=== PATIENT | female | born 1990 | race Caucasian/White ===

== ENCOUNTER 2016-05-04 15:04 | Emergency (ER) | payer SELFPAY ==
--- NOTE | 2016-05-04 16:17 | ED NURSING NOTES ---
Clinical Report - Nurses [facility] [address] [place] [address] 05/04/2016 15:06 [id number] Triage time 15:31. Acuity: LEVEL 4. Chief Complaint: TOOTHACHE. Alert. No acute distress. GAYLA COMA SCORE: [place] Coma Scale: 15- eyes open spontaneously (4); best verbal response- oriented x 4 (5); best motor response- obeys commands (6). --15:36 Perla Oseguera R.N. 15:31 05/04/16. BP: 116/72. HR: 85. RR: 18. O2 saturation: 100% on room air. Temp: 98 F (oral). Pain level now: 610. --15:36 Perla Oseguera R.N. Weight: 58.9 kg stated. Height/Length: 65 inches Per Patient. BMI: 21.6. --15:35 Peral Oseguera R.N. Medications Depakote Oral. Mobic Oral. --15:33 Perla Oseguera R.N. Allergies No Known Drug Allergy. --15:33 Perla Oseguera R.N. History Arrived by private vehicle. Historian: patient. Accompanied by friend. Primary physician (out of state). Onset. (about 4 days). PAST MEDICAL HX: Last normal menstrual period- Mar 2016. SOCIAL HX: Light tobacco smoker- less than 1/2 a pack per day. Occasional alcohol use. History of drug use: marijuana. FALL RISK ASSESSMENT: Fall risk assessment completed. No fall risk identified. FUNCTIONAL ASSESSMENT: Functional assessment: no impairments noted. LEARNING NEEDS ASSESSMENT: The learning needs assessment revealed no barriers. --15:36 Perla Oseguera R.N. PROBLEMS: Scoliosis. Bipolar Disorder. Asthma. --15:34 Perla Oseguera R.N. ADDITIONAL SURGERIES: no known surgeries. Assessment GENERAL / NEURO / PSYCH: Alert. Oriented X 4. Appears in no acute distress. Patient appears calm and cooperative. RESPIRATORY: Respirations not labored. SKIN: Skin is warm and dry. --15:36 Perla Oseguera R.N. Interventions ID band on patient. To treatment room. --15:36 Perla Oseguera R.N. PHYSICAL ASSESSMENT 16:10 05/04/16. Ambulatory to room. GENERAL / NEURO / PSYCH: Alert. Oriented X 4. Appears in no acute distress. RESPIRATORY: Respirations not labored. SKIN: Skin is warm and dry. --16:10 Perla Oseguera R.N. NURSING PROGRESS NOTES 16:11 05/04/16. Patient placed in chair. --16:11 Perla Oseguera R.N. 16:20. The patient is calm. Overall patient status is the same- she states feels the same. GENERAL / NEURO / PSYCH: Alert. Oriented X 4. RESPIRATORY: No respiratory distress. SKIN: Skin is warm and dry. --16:41 Perla Oseguera R.N. DISPOSITION / DISCHARGE Departure time: 1620. Condition at departure: unchanged. No learning barriers present. Discharge instructions provided and reviewed with the patient. Reviewed medication(s). Prescription(s) given to the patient. Patient verbalized understanding. Written instructions provided in Yoruba. The patient was discharged home and accompanied by family. She left the Emergency Department ambulatory and via private vehicle. FALL RISK ASSESSMENT: Fall risk assessment completed. No fall risk identified. --16:40 Perla Oseguera R.N. Reviewed referrals (Dental Referral Sheet). --16:41 Perla Oseguera R.N. Locked/Released at 05/04/2016 16:42 by Perla Oseguera R.N.
--- NOTE | 2016-05-04 16:17 | ED CLINICAL REPORT ---
Clinical Report - Physicians/Mid Levels [facility] [address] [place] [address] 05/04/2016 15:06 Patient: SEVERIANO RUDOLPH Time Seen: 16:14 May 04 2016. Arrived- By private vehicle. Historian- patient. HISTORY OF PRESENT ILLNESS Chief Complaint: DENTAL PAIN. 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 Pain described as mild. The patient has had toothache. (Reports history of broken ounce of the left lower molar sign, now with pain to the area. Patient reports no fevers or chills. Reports paresthesias to the tooth, pain radiating to the ear.). REVIEW OF SYSTEMS No fever, cough, difficulty breathing, nausea or abdominal pain. No headache or fainting episodes. All systems otherwise negative, except as recorded above. ADDITIONAL NOTES The nursing notes have been reviewed. PHYSICAL EXAM Vital Signs: 05/04/2016 15:31 BP: 116/72. HR: 85. RR: 18. O2 saturation: 100%. Temp: 98 F. Pain level now: 6/10. Appearance: Alert. Eyes: Conjunctivae and eyelids normal. ENT: Mild, localized dental decay (lower left second premolar). Dental tenderness (left lower gum line). Ears normal. Nose normal. Lips normal. Uvula midline. No mouth ulcerations, tonsillar exudate or peritonsillar mass. Neck: Trachea midline. No adenopathy. No thyromegaly or meningeal signs. CVS: Normal heart rate and rhythm. Heart sounds normal. Respiratory: No respiratory distress. Breath sounds normal. Skin: Normal skin color. No rash. PROGRESS AND PROCEDURES Course of Care: No signs of Abner's angina. No signs of palpable abscess for drainage. No external facial swelling. 05/04/2016 15:31 BP: 116/72. HR: 85. RR: 18. O2 saturation: 100%. Temp: 98 F. Pain level now: 6/10. Patient is stable. The patient's symptoms are unchanged. Patient/family counseled. Disposition: Discharged. CLINICAL IMPRESSION Moderate dental pain. INSTRUCTIONS Drink plenty of fluids. Prescription Medications: Tylenol with Codeine Tylenol #3 (30 mg / 300 mg) : take 1-2 tablets orally every 6 hours as needed for pain. Dispense fifteen (15). No refill. Amoxicillin 500 mg tablets: take 1 orally every 8 hours for 10 days. No refills. OTC Medications: Motrin IB 200 mg (available over the counter): take 4 orally for 5 days, as needed for pain (Electronically signed by Leesa Barrientos P.A.-C 05/04/2016 16:28)
--- NOTE | 2016-05-04 16:17 | ED CLINICAL REPORT ---
Clinical Report - Physicians/Mid Levels [facility] [address] [place] [address] 05/04/2016 15:06 Patient: SEVERIANO RUDOLPH Time Seen: 16:14 May 04 2016. Arrived- By private vehicle. Historian- patient. HISTORY OF PRESENT ILLNESS Chief Complaint: DENTAL PAIN. 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 Pain described as mild. The patient has had toothache. (Reports history of broken ounce of the left lower molar sign, now with pain to the area. Patient reports no fevers or chills. Reports paresthesias to the tooth, pain radiating to the ear.). REVIEW OF SYSTEMS No fever, cough, difficulty breathing, nausea or abdominal pain. No headache or fainting episodes. All systems otherwise negative, except as recorded above. ADDITIONAL NOTES The nursing notes have been reviewed. PHYSICAL EXAM Vital Signs: 05/04/2016 15:31 BP: 116/72. HR: 85. RR: 18. O2 saturation: 100%. Temp: 98 F. Pain level now: 6/10. Appearance: Alert. Eyes: Conjunctivae and eyelids normal. ENT: Mild, localized dental decay (lower left second premolar). Dental tenderness (left lower gum line). Ears normal. Nose normal. Lips normal. Uvula midline. No mouth ulcerations, tonsillar exudate or peritonsillar mass. Neck: Trachea midline. No adenopathy. No thyromegaly or meningeal signs. CVS: Normal heart rate and rhythm. Heart sounds normal. Respiratory: No respiratory distress. Breath sounds normal. Skin: Normal skin color. No rash. PROGRESS AND PROCEDURES Course of Care: No signs of Abner's angina. No signs of palpable abscess for drainage. No external facial swelling. 05/04/2016 15:31 BP: 116/72. HR: 85. RR: 18. O2 saturation: 100%. Temp: 98 F. Pain level now: 6/10. Patient is stable. The patient's symptoms are unchanged. Patient/family counseled. Disposition: Discharged. CLINICAL IMPRESSION Moderate dental pain. INSTRUCTIONS Drink plenty of fluids. Prescription Medications: Tylenol with Codeine Tylenol #3 (30 mg / 300 mg) : take 1-2 tablets orally every 6 hours as needed for pain. Dispense fifteen (15). No refill. Amoxicillin 500 mg tablets: take 1 orally every 8 hours for 10 days. No refills. OTC Medications: Motrin IB 200 mg (available over the counter): take 4 orally for 5 days, as needed for pain (Electronically signed by Leesa Barrientos P.A.-C 05/04/2016 16:28)
--- NOTE | 2016-05-04 16:42 | ED MED RECONCILIATION SUMMARY ---
Patient: SEVERIANO RUDOLPH Medication Reconciliation Report [facility] VisitID: [id number] [address] [place] [address] 25y, F Registration Date/Time: 05/04/2016 Weight: 58.9 kg Height/Length: 65 in. BMI: 21.6 ALLERGIES: No Known Drug Allergy The patient's Home Medications are listed below: THE FOLLOWING MEDICATIONS NEED TO BE RECONCILED: Depakote Oral Mobic Oral The source(s) of the original Home Medication information: Not obtained. The following Medications were given to the patient in the Emergency Department: None. The following Medications were prescribed to the patient: Motrin IB 200 mg (available over the counter): take 4 orally for 5 days, as needed for pain -- Leesa Barrientos P.A.-C Tylenol with Codeine Tylenol #3 (30 mg / 300 mg) : take 1-2 tablets orally every 6 hours as needed for pain. Dispense fifteen (15). No refill. -- Leesa Barrientos P.A.-C Amoxicillin 500 mg tablets: take 1 orally every 8 hours for 10 days. No refills. -- Leesa Barrientos P.A.-C
--- NOTE | 2016-05-04 16:42 | ED DISCHARGE INSTRUCTIONS ---
Patient: SEVERIANO RUDOLPH General Instructions [facility] VisitID: [id number] [place] [address] 25y, F Registration Date/Time: 05/04/2016 Moderate dental pain. INSTRUCTIONS Drink plenty of fluids. Prescription Medications: Tylenol with Codeine Tylenol #3 (30 mg / 300 mg) : take 1-2 tablets orally every 6 hours as needed for pain. Dispense fifteen (15). No refill. Amoxicillin 500 mg tablets: take 1 orally every 8 hours for 10 days. No refills. OTC Medications: Motrin IB 200 mg (available over the counter): take 4 orally for 5 days, as needed for pain ADDITIONAL INFORMATION Dental Pain A crack or cavity in the tooth, which exposes the sensitive inner area of the tooth can cause tooth pain. An infection in the gum or the root of the tooth can cause pain and swelling. The pain is often made worse by drinking hot or cold fluids, or biting on hard foods. Pain may spread from the tooth to the ear or jaw on the same side. Home Care: Avoid hot and cold foods and liquids since your tooth may be sensitive to temperature changes. If your tooth is chipped or cracked, or if there is a large open cavity, apply OIL OF CLOVES (available zbjg-pyf-mzawnjt in drug stores) directly to the tooth to reduce pain. Some pharmacies carry an bfdn-[id number]-zzuaznf "toothache kit." This contains a paste, which can be applied over the exposed tooth to decrease sensitivity. A cold pack on your jaw over the sore area may help reduce pain. You may use acetaminophen (Tylenol) or ibuprofen (Motrin, Advil) to control pain, unless another medicine was prescribed. [ NOTE: If you have chronic liver or kidney disease or ever had a stomach ulcer or GI bleeding, talk with your doctor before using these medicines.] If you have signs of an infection, an antibiotic will be given. Take it as directed. Follow-Up as directed with a dentist. Your pain may go away with the treatment given. However, only a dentist can fully evaluate and treat the cause and prevent the pain from coming back again. TOOTHACHE IS A SIGN OF DISEASE IN YOUR TOOTH AND SHOULD BE EXAMINED AND TREATED BY A DENTIST. Get Prompt Medical Attention if any of the following occur: Your face becomes swollen or red Pain worsens or spreads to the neck Fever over 100.4 F (38.0 C) Unusual drowsiness; headache or stiff neck; weakness or fainting Pus drains from the tooth Difficulty swallowing or breathing Amoxicillin Trihydrate Oral tablet What is this medicine? AMOXICILLIN (a mox i ROSALIND in) is a penicillin antibiotic. It is used to treat certain kinds of bacterial infections. It will not work for colds, flu, or other viral infections. How should I use this medicine? Take this medicine by mouth with a glass of water. Follow the directions on your prescription label. You may take this medicine with food or on an empty stomach. Take your medicine at regular intervals. Do not take your medicine more often than directed. Take all of your medicine as directed even if you think your are better. Do not skip doses or stop your medicine early. Talk to your planer off bearer regarding the use of this medicine in children. While this drug may be prescribed for selected conditions, precautions do apply. What side effects may I notice from receiving this medicine? Side effects that you should report to your doctor or health account executive healthcare as soon as possible: allergic reactions like skin rash, itching or hives, swelling of the face, lips, or tongue breathing problems dark urine redness, blistering, peeling or loosening of the skin, including inside the mouth seizures severe or watery diarrhea trouble passing urine or change in the amount of urine unusual bleeding or bruising unusually weak or tired yellowing of the eyes or skin Side effects that usually do not require medical attention (report to your doctor or health account executive healthcare if they continue or are bothersome): dizziness headache stomach upset trouble sleeping What may interact with this medicine? amiloride control pills chloramphenicol macrolides probenecid sulfonamides tetracyclines What if I miss a dose? If you miss a dose, take it as soon as you can. If it is almost time for your next dose, take only that dose. Do not take double or extra doses. Where should I keep my medicine? Keep out of the reach of children. Store between 68 and 77 degrees F (20 and 25 degrees C). Keep bottle closed tightly. Throw away any unused medicine after the expiration date. What should I tell my health care provider before I take this medicine? They need to know if you have any of these conditions: asthma kidney disease an unusual or allergic reaction to amoxicillin, other penicillins, cephalosporin antibiotics, other medicines, foods, dyes, or preservatives or trying to get breast-feeding What should I watch for while using this medicine? Tell your doctor or health account executive healthcare if your symptoms do not improve in 2 or 3 days. Take all of the doses of your medicine as directed. Do not skip doses or stop your medicine early. If you are diabetic, you may get a false positive result for sugar in your urine with certain brands of urine tests. Check with your doctor. Do not treat diarrhea with vzkz-sai-cgfawmn products. Contact your doctor if you have diarrhea that lasts more than 2 days or if the diarrhea is severe and watery. Ibuprofen Oral tablet What is this medicine? IBUPROFEN (eye BYOO proe fen) is a non-steroidal anti-inflammatory drug (NSAID). It is used for dental pain, fever, headaches or migraines, osteoarthritis, rheumatoid arthritis, or painful monthly periods. It can also relieve minor aches and pains caused by a cold, flu, or sore throat. How should I use this medicine? Take this medicine by mouth with a glass of water. Follow the directions on the prescription label. Take this medicine with food if your stomach gets upset. Try to not lie down for at least 10 minutes after you take the medicine. Take your medicine at regular intervals. Do not take your medicine more often than directed. A special MedGuide will be given to you by the pharmacist with each prescription and refill. Be sure to read this information carefully each time. Talk to your planer off bearer regarding the use of this medicine in children. Special care may be needed. What side effects may I notice from receiving this medicine? Side effects that you should report to your doctor or health account executive healthcare as soon as possible: allergic reactions like skin rash, itching or hives, swelling of the face, lips, or tongue black or bloody stools, blood in the urine or in vomit breathing problems changes in vision chest pain general ill feeling or flu-like symptoms nausea or vomiting redness, blistering, peeling or loosening of the skin, including inside the mouth slurred speech or weakness on one side of the body stomach pain unexplained weight gain or swelling unusually weak or tired yellowing of eyes or skin Side effects that usually do not require medical attention (report to your doctor or health account executive healthcare if they continue or are bothersome): constipation or diarrhea dizziness gas or heartburn stomach upset What may interact with this medicine? Do not take this medicine with any of the following medications: cidofovir ketorolac methotrexate pemetrexed This medicine may also interact with the following medications: alcohol aspirin diuretics lithium other drugs for inflammation like prednisone warfarin What if I miss a dose? If you miss a dose, take it as soon as you can. If it is almost time for your next dose, take only that dose. Do not take double or extra doses. Where should I keep my medicine? Keep out of the reach of children. Store at room temperature between 15 and 30 degrees C (59 and 86 degrees F). Keep container tightly closed. Throw away any unused medicine after the expiration date. What should I tell my health care provider before I take this medicine? They need to know if you have any of these conditions: asthma cigarette smoker drink more than 3 alcohol containing drinks a day heart disease or circulation problems such as heart failure or leg edema (fluid retention) high blood pressure kidney disease liver disease stomach bleeding or ulcers an unusual or allergic reaction to ibuprofen, aspirin, other NSAIDS, other medicines, foods, dyes, or preservatives or trying to get breast-feeding What should I watch for while using this medicine? Tell your doctor or healthcare professional if your symptoms do not start to get better or if they get worse. This medicine does not prevent heart attack or stroke. In fact, this medicine may increase the chance of a heart attack or stroke. The chance may increase with longer use of this medicine and in people who have heart disease. If you take aspirin to prevent heart attack or stroke, talk with your doctor or health account executive healthcare. Do not take other medicines that contain aspirin, ibuprofen, or naproxen with this medicine. Side effects such as stomach upset, nausea, or ulcers may be more likely to occur. Many medicines available without a prescription should not be taken with this medicine. This medicine can cause ulcers and bleeding in the stomach and intestines at any time during treatment. Ulcers and bleeding can happen without warning symptoms and can cause . To reduce your risk, do not smoke cigarettes or drink alcohol while you are taking this medicine. You may get drowsy or dizzy. Do not drive, use machinery, or do anything that needs mental alertness until you know how this medicine affects you. Do not stand or sit up quickly, especially if you are an older patient. This reduces the risk of dizzy or fainting spells. This medicine can cause you to bleed more easily. Try to avoid damage to your teeth and gums when you brush or floss your teeth. You have been given the following additional information: Dental Pain Amoxicillin Trihydrate Oral tablet Ibuprofen Oral tablet (Electronically signed by Leesa Barrientos P.A.-C 05/04/2016 16:28)
--- NOTE | 2016-05-04 16:42 | ED MED RECONCILIATION SUMMARY ---
Patient: SEVERIANO RUDOLPH Medication Reconciliation Report [facility] VisitID: [id number] [address] [place] [address] 25y, F Registration Date/Time: 05/04/2016 Weight: 58.9 kg Height/Length: 65 in. BMI: 21.6 ALLERGIES: No Known Drug Allergy The patient's Home Medications are listed below: THE FOLLOWING MEDICATIONS NEED TO BE RECONCILED: Depakote Oral Mobic Oral The source(s) of the original Home Medication information: Not obtained. The following Medications were given to the patient in the Emergency Department: None. The following Medications were prescribed to the patient: Motrin IB 200 mg (available over the counter): take 4 orally for 5 days, as needed for pain -- Leesa Barrientos P.A.-C Tylenol with Codeine Tylenol #3 (30 mg / 300 mg) : take 1-2 tablets orally every 6 hours as needed for pain. Dispense fifteen (15). No refill. -- Leesa Barrientos P.A.-C Amoxicillin 500 mg tablets: take 1 orally every 8 hours for 10 days. No refills. -- Leesa Barrientos P.A.-C
--- NOTE | 2016-05-04 16:42 | ED MAR SUMMARY ---
..... Medication Administration Record [facility] [address], [place] [id number] Patient: SEVERIANO RUDOLPH Visit ID: [id number] 25y, F Weight: 58.9 kg Height/Length: 65 in BMI: 21.6 ALLERGIES: No Known Drug Allergy
--- NOTE | 2016-05-04 16:42 | ED MAR SUMMARY ---
..... Medication Administration Record [facility] [address] [place], [place] [id number] Patient: SEVERIANO RUDOLPH Visit ID: [id number] 25y, F Weight: 58.9 kg Height/Length: 65 in BMI: 21.6 ALLERGIES: No Known Drug Allergy
--- NOTE | 2016-05-04 16:42 | ED DISCHARGE INSTRUCTIONS ---
Patient: SEVERIANO RUDOLPH General Instructions [facility] VisitID: [id number] [place] [address] 25y, F Registration Date/Time: 05/04/2016 Moderate dental pain. INSTRUCTIONS Drink plenty of fluids. Prescription Medications: Tylenol with Codeine Tylenol #3 (30 mg / 300 mg) : take 1-2 tablets orally every 6 hours as needed for pain. Dispense fifteen (15). No refill. Amoxicillin 500 mg tablets: take 1 orally every 8 hours for 10 days. No refills. OTC Medications: Motrin IB 200 mg (available over the counter): take 4 orally for 5 days, as needed for pain ADDITIONAL INFORMATION Dental Pain A crack or cavity in the tooth, which exposes the sensitive inner area of the tooth can cause tooth pain. An infection in the gum or the root of the tooth can cause pain and swelling. The pain is often made worse by drinking hot or cold fluids, or biting on hard foods. Pain may spread from the tooth to the ear or jaw on the same side. Home Care: Avoid hot and cold foods and liquids since your tooth may be sensitive to temperature changes. If your tooth is chipped or cracked, or if there is a large open cavity, apply OIL OF CLOVES (available [id number]-fcdppnc in drug stores) directly to the tooth to reduce pain. Some pharmacies carry an vtiw-yaa-sqrizvo "toothache kit." This contains a paste, which can be applied over the exposed tooth to decrease sensitivity. A cold pack on your jaw over the sore area may help reduce pain. You may use acetaminophen (Tylenol) or ibuprofen (Motrin, Advil) to control pain, unless another medicine was prescribed. [ NOTE: If you have chronic liver or kidney disease or ever had a stomach ulcer or GI bleeding, talk with your doctor before using these medicines.] If you have signs of an infection, an antibiotic will be given. Take it as directed. Follow-Up as directed with a dentist. Your pain may go away with the treatment given. However, only a dentist can fully evaluate and treat the cause and prevent the pain from coming back again. TOOTHACHE IS A SIGN OF DISEASE IN YOUR TOOTH AND SHOULD BE EXAMINED AND TREATED BY A DENTIST. Get Prompt Medical Attention if any of the following occur: Your face becomes swollen or red Pain worsens or spreads to the neck Fever over 100.4 F (38.0 C) Unusual drowsiness; headache or stiff neck; weakness or fainting Pus drains from the tooth Difficulty swallowing or breathing Amoxicillin Trihydrate Oral tablet What is this medicine? AMOXICILLIN (a mox i ROSALIND in) is a penicillin antibiotic. It is used to treat certain kinds of bacterial infections. It will not work for colds, flu, or other viral infections. How should I use this medicine? Take this medicine by mouth with a glass of water. Follow the directions on your prescription label. You may take this medicine with food or on an empty stomach. Take your medicine at regular intervals. Do not take your medicine more often than directed. Take all of your medicine as directed even if you think your are better. Do not skip doses or stop your medicine early. Talk to your sanitarian aide regarding the use of this medicine in children. While this drug may be prescribed for selected conditions, precautions do apply. What side effects may I notice from receiving this medicine? Side effects that you should report to your doctor or health respiratory care assistant as soon as possible: allergic reactions like skin rash, itching or hives, swelling of the face, lips, or tongue breathing problems dark urine redness, blistering, peeling or loosening of the skin, including inside the mouth seizures severe or watery diarrhea trouble passing urine or change in the amount of urine unusual bleeding or bruising unusually weak or tired yellowing of the eyes or skin Side effects that usually do not require medical attention (report to your doctor or health respiratory care assistant if they continue or are bothersome): dizziness headache stomach upset trouble sleeping What may interact with this medicine? amiloride control pills chloramphenicol macrolides probenecid sulfonamides tetracyclines What if I miss a dose? If you miss a dose, take it as soon as you can. If it is almost time for your next dose, take only that dose. Do not take double or extra doses. Where should I keep my medicine? Keep out of the reach of children. Store between 68 and 77 degrees F (20 and 25 degrees C). Keep bottle closed tightly. Throw away any unused medicine after the expiration date. What should I tell my health care provider before I take this medicine? They need to know if you have any of these conditions: asthma kidney disease an unusual or allergic reaction to amoxicillin, other penicillins, cephalosporin antibiotics, other medicines, foods, dyes, or preservatives or trying to get breast-feeding What should I watch for while using this medicine? Tell your doctor or health respiratory care assistant if your symptoms do not improve in 2 or 3 days. Take all of the doses of your medicine as directed. Do not skip doses or stop your medicine early. If you are diabetic, you may get a false positive result for sugar in your urine with certain brands of urine tests. Check with your doctor. Do not treat diarrhea with qdlc-wur-adkytaq products. Contact your doctor if you have diarrhea that lasts more than 2 days or if the diarrhea is severe and watery. Ibuprofen Oral tablet What is this medicine? IBUPROFEN (eye BYOO proe fen) is a non-steroidal anti-inflammatory drug (NSAID). It is used for dental pain, fever, headaches or migraines, osteoarthritis, rheumatoid arthritis, or painful monthly periods. It can also relieve minor aches and pains caused by a cold, flu, or sore throat. How should I use this medicine? Take this medicine by mouth with a glass of water. Follow the directions on the prescription label. Take this medicine with food if your stomach gets upset. Try to not lie down for at least 10 minutes after you take the medicine. Take your medicine at regular intervals. Do not take your medicine more often than directed. A special MedGuide will be given to you by the pharmacist with each prescription and refill. Be sure to read this information carefully each time. Talk to your sanitarian aide regarding the use of this medicine in children. Special care may be needed. What side effects may I notice from receiving this medicine? Side effects that you should report to your doctor or health respiratory care assistant as soon as possible: allergic reactions like skin rash, itching or hives, swelling of the face, lips, or tongue black or bloody stools, blood in the urine or in vomit breathing problems changes in vision chest pain general ill feeling or flu-like symptoms nausea or vomiting redness, blistering, peeling or loosening of the skin, including inside the mouth slurred speech or weakness on one side of the body stomach pain unexplained weight gain or swelling unusually weak or tired yellowing of eyes or skin Side effects that usually do not require medical attention (report to your doctor or health respiratory care assistant if they continue or are bothersome): constipation or diarrhea dizziness gas or heartburn stomach upset What may interact with this medicine? Do not take this medicine with any of the following medications: cidofovir ketorolac methotrexate pemetrexed This medicine may also interact with the following medications: alcohol aspirin diuretics lithium other drugs for inflammation like prednisone warfarin What if I miss a dose? If you miss a dose, take it as soon as you can. If it is almost time for your next dose, take only that dose. Do not take double or extra doses. Where should I keep my medicine? Keep out of the reach of children. Store at room temperature between 15 and 30 degrees C (59 and 86 degrees F). Keep container tightly closed. Throw away any unused medicine after the expiration date. What should I tell my health care provider before I take this medicine? They need to know if you have any of these conditions: asthma cigarette smoker drink more than 3 alcohol containing drinks a day heart disease or circulation problems such as heart failure or leg edema (fluid retention) high blood pressure kidney disease liver disease stomach bleeding or ulcers an unusual or allergic reaction to ibuprofen, aspirin, other NSAIDS, other medicines, foods, dyes, or preservatives or trying to get breast-feeding What should I watch for while using this medicine? Tell your doctor or healthcare professional if your symptoms do not start to get better or if they get worse. This medicine does not prevent heart attack or stroke. In fact, this medicine may increase the chance of a heart attack or stroke. The chance may increase with longer use of this medicine and in people who have heart disease. If you take aspirin to prevent heart attack or stroke, talk with your doctor or health respiratory care assistant. Do not take other medicines that contain aspirin, ibuprofen, or naproxen with this medicine. Side effects such as stomach upset, nausea, or ulcers may be more likely to occur. Many medicines available without a prescription should not be taken with this medicine. This medicine can cause ulcers and bleeding in the stomach and intestines at any time during treatment. Ulcers and bleeding can happen without warning symptoms and can cause . To reduce your risk, do not smoke cigarettes or drink alcohol while you are taking this medicine. You may get drowsy or dizzy. Do not drive, use machinery, or do anything that needs mental alertness until you know how this medicine affects you. Do not stand or sit up quickly, especially if you are an older patient. This reduces the risk of dizzy or fainting spells. This medicine can cause you to bleed more easily. Try to avoid damage to your teeth and gums when you brush or floss your teeth. You have been given the following additional information: Dental Pain Amoxicillin Trihydrate Oral tablet Ibuprofen Oral tablet (Electronically signed by Leesa Barrientos P.A.-C 05/04/2016 16:28)
== END 2016-05-04 16:20 | disposition home or self-care (01) ==
LOC: ED SRH 15:04
DX: K08.89 Other specified disorders of teeth and supporting structures (principal); F17.200 Nicotine dependence, unspecified, uncomplicated